=== PATIENT | male | born 1990 | race Caucasian/White ===

== ENCOUNTER 2016-12-21 11:45 | Emergency (ER) | payer SELFPAY | END 2016-12-21 13:52 | disposition left against medical advice (07) | LOC: ER1 11:45 | DX: Z53.21 Procedure and treatment not carried out due to patient leaving prior to being seen by health care provider (principal) | CPT/HCPCS: 93005 ==

== ENCOUNTER 2020-12-17 11:32 | Emergency (ER) | payer OTHER | END 2020-12-17 14:35 | disposition left against medical advice (07) | LOC: ER1 11:32 | DX: Z53.21 Procedure and treatment not carried out due to patient leaving prior to being seen by health care provider (principal) | CPT/HCPCS: 93005 ==